=== PATIENT | female | born 1990 | race Caucasian/White ===

== ENCOUNTER 2017-10-07 19:29 | Emergency (ER) | payer OTHER ==
[~2017-10-07] VITALS: Ht 162.6 cm; Wt 140.6 kg
[~2017-10-07 19:29] MED LIST: IBUPROFEN 400400 M1 PO
[2017-10-07] MEDS ORDERED: SPIRONOLACTONE25 M1 (19:42)
[2017-10-07] MEDS ORDERED: PAXIL10 MG (19:43)
[2017-10-07] MEDS ORDERED: [UNRECOGNIZED DRUG - OTHER] (19:44)
[2017-10-07] MEDS ORDERED: HYDROCODONE-AP1 EAC6 PO (20:00)
[2017-10-07] MEDS ORDERED: DOXYCYCLINE 10100 MG PO (20:00)
[2017-10-07 20:19] VITALS: BP 131/84
== END 2017-10-07 20:20 | disposition home or self-care (01) ==
LOC: M.ERS 19:29
DX: L02.01 Cutaneous abscess of face (principal); F17.210 Nicotine dependence, cigarettes, uncomplicated; Z90.49 Acquired absence of other specified parts of digestive tract; Z88.6 Allergy status to analgesic agent